=== PATIENT | female | born 1940 | race Caucasian/White ===

== ENCOUNTER 2022-07-08 05:20 | Day surgery (SDC) | payer OTHER ==
[~2022-07-08] VITALS: Ht 160 cm; Wt 95.3 kg
[~2022-07-08 05:20] MED LIST: ALLERGY10 MG PO; AMLODIPINE BESYL5 MG PO; CEFADROXIL500 MG PO; Inderal PO; KEP PO; LEVOXYL125 MCG; LOSARTAN-HCTZ1 EACH PO; LOZARTAN; OMEPRAZOLE MAGN20 MG PO; PERCOCET 5/3251 TAB PO; PLAVIX75 MG PO; POTASSIUM CHLOR8 ME1 PO; PROP PO; PROPRANOLOL PO; RAZADYNE ER16 MG PO; SINGULAIR 10MG10 MG PO; SINGULAIR10 MG PO; XARELTO10 MG PO; ZYRTEC10 M3 PO; [UNRECOGNIZED DRUG - OTHER] PO
[2022-07-08] MEDS ORDERED: COLACE100 MG PO (09:47)
[2022-07-08] MEDS ORDERED: ULTRACET PO (09:47)
== END 2022-07-08 15:15 | disposition home or self-care (01) ==
LOC: CIR.AMB 05:20
PROVIDERS: ATTEND Surgery
DX: D12.8 Benign neoplasm of rectum (principal); K64.4 Residual hemorrhoidal skin tags; I10 Essential (primary) hypertension; J45.909 Unspecified asthma, uncomplicated; Z87.891 Personal history of nicotine dependence; E03.9 Hypothyroidism, unspecified; M19.90 Unspecified osteoarthritis, unspecified site; G20 Parkinson's disease